=== PATIENT | female | born 1985 | race Caucasian/White ===

== ENCOUNTER 2016-09-06 12:01 | Outpatient (CLI) | payer MEDICAID | END 2016-09-06 12:02 | disposition home or self-care (01) | DX: J20.9 Acute bronchitis, unspecified (principal); R91.8 Other nonspecific abnormal finding of lung field ==

== ENCOUNTER 2016-09-19 12:01 | Emergency (ER) | payer MEDICAID ==
[2016-09-19] MEDS ORDERED: SODIUM CHLORIDE 0.9% 1,000 ML IV ONE ×2 (12:26→12:44)
[2016-09-19] MEDS ORDERED: KETOROLAC 60 MG/2 ML VIAL IVP STA (12:26)
[2016-09-19] MEDS ORDERED: ONDANSETRON 4 MG/2 ML VIAL IVP STA (12:26)
[2016-09-19] MEDS ORDERED: ONDANSETRON 4 MG/2 ML VIAL ONE (12:44)
[2016-09-19] MEDS ORDERED: KETOROLAC 30 MG/ML VIAL ONE (12:44)
[2016-09-19] MEDS ORDERED: HYDROmorphone 1 MG/ML SYRINGE IVP STA (13:07)
[2016-09-19] MEDS ORDERED: HYDROmorphone 1 MG/ML SYRINGE ONE (13:21)
[2016-09-19] MEDS ORDERED: cefTRIAXone 1 GM in SODIUM CHLORIDE 0.9% MINIBAG 100 ML IV STA (13:31)
[2016-09-19] MEDS ORDERED: cefTRIAXone 1 GM VIAL ONE (13:32)
[2016-09-19] MEDS ORDERED: SODIUM CHLORIDE 0.9% MINIBAG 100 ML IV ONE (13:33)
== END 2016-09-19 14:15 | disposition home or self-care (01) ==
DX: J18.9 Pneumonia, unspecified organism (principal); R10.9 Unspecified abdominal pain; K38.1 Appendicular concretions; R03.0 Elevated blood-pressure reading, without diagnosis of hypertension; F17.200 Nicotine dependence, unspecified, uncomplicated
CPT/HCPCS: 36415; 74176; 80053; 81003; 81025; 83690; 85025; 96361; 96365; 96375; 99284; J1170

== ENCOUNTER 2016-10-28 15:36 | Outpatient (CLI) | payer MEDICAID | END 2016-10-28 15:37 | disposition home or self-care (01) | DX: J18.9 Pneumonia, unspecified organism (principal) ==

== ENCOUNTER 2017-02-07 08:00 | Outpatient (CLI) | payer MEDICAID | END 2017-02-07 23:59 | disposition home or self-care (01) | LOC: LAB.R 08:00 | PROVIDERS: ATTEND Obstetrics & Gynecology | DX: N92.1 Excessive and frequent menstruation with irregular cycle (principal) | CPT/HCPCS: 87491; 87591 ==

== ENCOUNTER 2017-02-14 18:48 | Outpatient (CLI) | payer MEDICAID ==
--- NOTE | 2017-02-15 19:09 | Ultrasound Report ---
PELVIC ULTRASOUND: 02/14/2017 Transabdominal, transvaginal exam was done. Real-time scanning performed and static images obtained. REASON FOR EXAM: Excessive and frequent menstruation. FINDINGS: Uterus measures 8.2 cm x 4.8 cm x 5.2 cm with a volume of 107.2 mL. Endometrial echo comp sonya is 8 mm. Transvaginal ultrasound demonstrates two small subendometrial cysts, each measuring a f ew millimeters in diameter. This can be a subtle sign of adenomyosis. The endometrial echo complex shows no significant abnormality for a menstruating female. An obvious distinct fibroid is not seen within the uterus. Right ovary measures 3.6 cm x 3.1 cm x 3.0 cm for a volume of 17.2 mL. There is mild nonspecific inc reased vascularity within the parenchyma of the right ovary. There are two small follicular cysts al whit[place] the periphery of the right ovary. Left ovary measures 4.0 cm x 3.7 cm x 3.0 cm. Multiple small follicular cysts are noted within the l eft ovary. IMPRESSION: UTERUS SHOWS TWO TINY CYSTIC STRUCTURES IN THE SUBENDOMETRIAL REGION OF THE BODY OF THE UTERUS. THIS CAN BE A SUBTLE SIGN OF ADENOMYOSIS. UTERUS OTHERWISE SHOWS NO SIGNIFICANT ABNORMALITY. OVARIES SHOW NO SIGNIFICANT ABNORMALITY. JOB #: [id number] EXT JOB #:[id number]
== END 2017-02-14 18:49 | disposition home or self-care (01) ==
LOC: DI 18:48
PROVIDERS: ATTEND Obstetrics & Gynecology
DX: N85.9 Noninflammatory disorder of uterus, unspecified (principal); N92.1 Excessive and frequent menstruation with irregular cycle
CPT/HCPCS: 76830; 76856

== ENCOUNTER 2017-05-06 15:35 | Outpatient (CLI) | payer MEDICAID ==
[2017-05-06 18:47] LABS: BASOPHILS % (AUTO) 0.5 %; EOSINOPHILS # (AUTO) 0.4 10^3/uL (0.0-0.7); EOSINOPHILS % (AUTO) 4.3 %; HCT - HEMATOCRIT 41.6 % (37.0-47.0); HGB - HEMOGLOBIN 14.2 g/dL (12.0-16.0); LYMPHOCYTES % (AUTO) 34.1 %; MEAN CORPUSCULAR HEMOGLOBIN 33.6 pg (27.0-31.0); MEAN CORPUSCULAR VOLUME 98.8 fL (81.0-99.0); MEAN PLATELET VOLUME 9.6 fL (7.9-10.8); MONOCYTES # (AUTO) 0.9 10^3/uL (0.0-1.0); MONOCYTES % (AUTO) 10.3 %; NEUTROPHILS # (AUTO) 4.4 10^3/uL (1.5-6.6); NEUTROPHILS % (AUTO) 50.8 %; NUCLEATED RED BLOOD CELLS AUTO 0.1 /100WBC; RED BLOOD COUNT 4.21 10^6/uL (4.20-5.40); RED CELL DISTRIBUTION WIDTH 13.1 % (12.0-15.0); UNCORRECTED WHITE BLOOD COUNT 8.7 x10^3/uL; WHITE BLOOD COUNT 8.7 x10^3/uL (4.8-10.8)
[2017-05-06 19:15] LABS: TOTAL T3 1.09 ng/mL (0.87-1.78)
[2017-05-06 19:27] LABS: THYROID STIMULATING HORMONE 0.47 uIU/mL (0.34-5.60)
== END 2017-05-06 15:36 | disposition home or self-care (01) ==
LOC: LAB.F 15:35
PROVIDERS: ATTEND Obstetrics & Gynecology
DX: N92.1 Excessive and frequent menstruation with irregular cycle (principal); E03.9 Hypothyroidism, unspecified
CPT/HCPCS: 36415; 84436; 84443; 84480; 84481; 85025

== ENCOUNTER 2017-09-22 09:10 | Outpatient (CLI) | payer MEDICAID ==
--- NOTE | 2017-09-22 19:13 | XRAY Report ---
DATE OF SERVICE: 09/22/2017 THREE VIEW RIGHT HAND: 09/22/2017 CLINICAL INDICATION: Thumb pain. AP, lateral, oblique views of the right hand demonstrate no evidence of fracture or dislocation. The joint spaces are preserved. No radiopaque foreign body is appreciated in the soft tissues. IMPRESSION: Normal right hand. TD: 09/22/2017 20:12
== END 2017-09-22 09:11 | disposition home or self-care (01) ==
LOC: DI.S 09:10
PROVIDERS: ATTEND Nurse Practitioner Family
DX: M79.644 Pain in right finger(s) (principal)

== ENCOUNTER 2018-03-28 14:52 | Outpatient (CLI) | payer MEDICAID ==
--- NOTE | 2018-03-28 15:54 | XRAY Report ---
Procedure Date: 03/28/2018 Accession Number: [id number] / [id number] Procedure: XRS - Knee 4 View RT CPT Code: FULL RESULT: EXAM: Knee 4 View RT DATE: 03/28/2018 3:49 PM CLINICAL HISTORY: PAIN IN RIGHT KNEE COMPARISON: None. TECHNIQUE: 4 views. FINDINGS: Bones: Normal. No fractures or bone lesions. Joints: Normal. No effusion. No subluxations. Soft Tissues: Normal. No soft tissue swelling. IMPRESSION: Normal knee radiography. RADIA
== END 2018-03-28 14:53 | disposition home or self-care (01) ==
LOC: DI.S 14:52
PROVIDERS: ATTEND Nurse Practitioner Family
DX: M25.561 Pain in right knee (principal)

== ENCOUNTER 2018-07-01 12:44 | Emergency (ER) | payer MEDICAID ==
[2018-07-01 13:25] LABS: BASOPHILS % (AUTO) 0.5 %; EOSINOPHILS # (AUTO) 0.2 10^3/uL (0.0-0.7); EOSINOPHILS % (AUTO) 2.5 %; HGB - HEMOGLOBIN 14.1 g/dL (12.0-16.0); LYMPHOCYTES # (AUTO) 3.1 10^3/uL (1.5-3.5); LYMPHOCYTES % (AUTO) 32.5 %; MEAN CORPUSCULAR HEMOGLOBIN 34.1 pg (27.0-31.0); MEAN CORPUSCULAR HGB CONC 34.6 g/dL (32.0-36.0); MEAN CORPUSCULAR VOLUME 98.6 fL (81.0-99.0); MEAN PLATELET VOLUME 9.3 fL (7.9-10.8); MONOCYTES # (AUTO) 0.8 10^3/uL (0.0-1.0); MONOCYTES % (AUTO) 8.5 %; NEUTROPHILS # (AUTO) 5.3 10^3/uL (1.5-6.6); PLT - PLATELET COUNT 253 10^3/uL (130-450); RED BLOOD COUNT 4.13 10^6/uL (4.20-5.40); RED CELL DISTRIBUTION WIDTH 12.9 % (12.0-15.0); WHITE BLOOD COUNT 9.4 x10^3/uL (4.8-10.8)
[2018-07-01 13:31] LABS: BILIRUBIN,URINE NEGATIVE (NEGATIVE); GLUCOSE, URINE (UA) NEGATIVE (NEGATIVE); KETONES,URINE (UA) NEGATIVE (NEGATIVE); LEUKOCYTE ESTERASE, URINE NEGATIVE (NEGATIVE); NITRITE,URINE NEGATIVE (NEGATIVE); OCCULT BLOOD,URINE NEGATIVE (NEGATIVE); PH,URINE 7.5 PH (5.0-7.5); PROTEIN,URINE NEGATIVE (NEGATIVE); UROBILINOGEN,URINE 0.2 (NORMAL) E.U./dL (NORMAL)
[2018-07-01 13:31] LABS: ALBUMIN 4.8 g/dL (3.2-5.5); ALBUMIN/GLOBULIN RATIO 1.6 (1.0-2.2); BILIRUBIN,TOTAL 1.1 mg/dL (0.2-1.0); CALCIUM 9.3 mg/dL (8.5-10.3); CREATININE 0.7 mg/dL (0.4-1.0); TOTAL PROTEIN 7.8 g/dL (6.7-8.2)
[2018-07-01 13:34] LABS: CLARITY,URINE CLEAR (CLEAR); HCG UR QUAL NEGATIVE
[2018-07-01] MEDS ORDERED: KETOROLAC 60 MG/2 ML VIAL IVP STA (13:47)
[2018-07-01] MEDS ORDERED: PROMETHAZINE INJ 25 MG in SODIUM CHLORIDE 0.9% 50 ML IV STA (13:48)
[2018-07-01] MEDS ORDERED: SODIUM CHLORIDE 0.9% 1,000 ML IV ONE (13:48)
--- NOTE | 2018-07-01 13:59 | ED Physician Documentation ---
PD HPI ABD PAIN - Stated complaint Stated Complaint: ABD PX - Chief complaint Chief Complaint: Abd Pain - History obtained from History obtained from: Patient - History of Present Illness Timing - onset: Other (The patient's symptoms started 2 days ago) Timing - duration: Days (2) Timing - details: Gradual onset, Still present, Constant Severity Comments: Moderate Quality: Cramping, Sharp Location: RLQ Radiation: No: Chest, Lower back, Left flank, Left shoulder, Right flank, Right shoulder Improved by: No: Eating, Laying still, Vomiting, BM, Position Worsened by: No: Eating, Moving, Breathing, Position, Palpation Associated symptoms: Nausea, Dizzy, Loss of appetite. No: Fever, Vomiting, Hematemesis, Diarrhea, Melena, Dysuria, Vaginal bleeding Similar symptoms before: Has not had sx before Recently seen: Not recently seen Review of Systems Constitutional: denies: Fever, Chills Eyes: denies: Discharge Ears: denies: Drainage/discharge Nose: denies: Congestion Throat: denies: Sore throat Cardiac: denies: Palpitations Respiratory: denies: Cough GI: reports: Abdominal Pain, Nausea : denies: Dysuria Skin: denies: Rash Musculoskeletal: denies: Neck pain Neurologic: denies: Generalized weakness Immunocompromised: denies: Chemotherapy PD PAST MEDICAL HISTORY - Past Medical History Past Medical History: No - Past Surgical History Past Surgical History: No - Present Medications Home Medications: Ambulatory Orders Medication Instructions Recorded Confirmed HYDROcod/ACETAM 5/325 [[place] 5/325] 1 each PO Q6H PRN #15 tablet 07/01/18 Naproxen [Naprosyn] 500 mg PO BID PRN 30 Days #30 07/01/18 tablet Ondansetron Odt [Zofran] 4 mg TL Q6H PRN #30 tablet 07/01/18 - Allergies Allergies/Adverse Reactions: Allergies Allergy/AdvReac Type Severity Reaction Status Date / Time hydrocodone bitartrate * Allergy Itching Verified 07/01/18 12:51 [From Vicodin] - Social History Does the pt smoke?: Yes Smoking Status: Current every day smoker Does the pt drink ETOH?: No Does the pt have substance abuse?: Yes - Immunizations Immunizations are current?: Yes PD ED PE NORMAL - General General: Alert and oriented X 3, No acute distress - HEENT HEENT: Atraumatic, PERRL, EOMI, Ears normal - Neck Neck: Supple, no meningeal sign - Cardiac Cardiac: RRR, Strong equal pulses - Respiratory Respiratory: No respiratory distress, Clear bilaterally - Abdomen Abdomen: Soft, Non distended. No: Non tender (The patient has tenderness to palpation in the right lower abdomen, there is no rebound or peritoneal signs) - Derm Derm: Normal color - Extremities Extremities: No deformity, Normal ROM s pain - Neuro Neuro: Alert and oriented X 3, Normal speech - Psych Psych: Normal mood Results - Vitals Vitals: Vital Signs - 24 hr 07/01/18 07/01/18 12:48 14:44 Temperature 37.3 C Heart Rate 97 68 Respiratory 18 14 Rate Blood Pressure 132/76 H 113/70 O2 Saturation 100 100 Oxygen O2 Source Room air - Labs Labs: Laboratory Tests 07/01/18 07/01/18 07/01/18 12:56 13:10 13:10 WBC 9.4 RBC 4.13 L Hgb 14.1 Hct 40.7 MCV 98.6 MCH 34.1 H MCHC 34.6 RDW 12.9 Plt Count 253 MPV 9.3 Neut # (Auto) 5.3 Lymph # (Auto) 3.1 [place] # (Auto) 0.8 Eos # (Auto) 0.2 Baso # (Auto) 0.0 Absolute Nucleated RBC 0.00 Nucleated RBC % 0.0 Sodium 138 Potassium 3.5 Chloride 101 Carbon Dioxide 29 Anion Gap 8.0 BUN 12 Creatinine 0.7 Estimated GFR (MDRD) 96 Glucose 93 Calcium 9.3 Total Bilirubin 1.1 H AST 19 ALT 16 Alkaline Phosphatase 55 Total Protein 7.8 Albumin 4.8 Globulin 3.0 Albumin/Globulin Ratio 1.6 Lipase 25 Urine Color YELLOW Urine Clarity CLEAR Urine pH 7.5 Ur Specific [place] 1.015 Urine Protein NEGATIVE Urine Glucose (UA) NEGATIVE Urine Ketones NEGATIVE Urine Occult Blood NEGATIVE Urine Nitrite NEGATIVE Urine Bilirubin NEGATIVE Urine Urobilinogen 0.2 (NORMAL) Ur Leukocyte Esterase NEGATIVE Ur Microscopic Review NOT INDICATED Urine Culture Comments NOT INDICATED Urine HCG, Qual NEGATIVE - Rads (name of study) CT Abd/pelvis Radiology: Final report received (1. Normal appendix. 2. Uterine and bilateral pelvic varices and prominence of both ovarian veins. This can be seen in the setting of pelvic vascular congestion syndrome. 3. Trace pelvic cul-de-sac free fluid. 4. 1.6 cm right probable ovarian follicle/cyst. 5. 4 mm left lower lobe pulmonary nodule, possibly representing a residual finding, as discussed above. If the patient is high risk, follow-up CT could be performed in 12 months. ) PD MEDICAL DECISION MAKING - ED course ED course: On reevaluation the patient is resting comfortably and her symptoms appear to be under much improvement. The patient's pain is now under control. The case was discussed with the on-call [employer] Dr. Marilia Ya, the patient's clinical presentation and CT findings were discussed. Since the patient's pain is under control she can follow-up with her primary [facility] as an outpatient for ongoing management. The findings were discussed with the patient and she understands and agrees to the plan. The patient did have a incidental finding of a pulmonary nodule but is not high risk.The patient appears appropriate for discharge and outpatient management. I discussed warning and advised returning to the emergency department for worsening symptoms or any concerns. Departure - Departure Disposition: 01 Home, Self Care Clinical Impression: Acute abdominal pain, Pelvic congestion syndrome Ovarian cyst Qualifiers: Laterality: right Qualified Code(s): N83.201 - Unspecified ovarian cyst, right side Condition: Good Instructions: Abdominal Pain, ED Cyst Ovarian Follow-Up: Alexia Garza ARNP [Primary Care Provider] - Pedro Vázquez MD [Provider Admit Priv/Credential] - (Please call first thing on tuesday to schedule a follow-up appointment for further evaluation of the findings seen on your workup today.) Prescriptions: HYDROcod/ACETAM 5/325 [[place] 5/325] 1 each PO Q6H PRN #15 tablet PRN Reason: Pain Naproxen [Naprosyn] 500 mg PO BID PRN 30 Days #30 tablet PRN Reason: Pain Ondansetron Odt [Zofran] 4 mg TL Q6H PRN #30 tablet PRN Reason: Nausea / Vomiting Comments: Please return to the Emergency Department for worsening symptoms or any concerns
[2018-07-01] MEDS ORDERED: IOPAMIDOL-300 100 ML VIAL ONE (14:13)
[2018-07-01] MEDS ORDERED: IOPAMIDOL-300 100 ML VIAL IVP ONE (14:29)
--- NOTE | 2018-07-01 15:12 | CT Report ---
Reason: RLQ Procedure Date: 07/01/2018 Accession Number: [id number] / [id number] Procedure: CT - Abdomen/Pelvis W/ CPT Code: FULL RESULT: EXAM: CT ABDOMEN AND PELVIS EXAM DATE: 07/01/2018 02:21 PM. CLINICAL HISTORY: RLQ. COMPARISONS: CT abdomen and pelvis without contrast 09/19/2016. TECHNIQUE: Routine helical CT imaging was performed through the abdomen and pelvis. IV contrast: ISOVUE 300 100mL. Enteric contrast: No. Reconstructions: Coronal and sagittal. In accordance with CT protocol optimization, one or more of the following dose reduction techniques were utilized for this exam: automated exposure control, adjustment of mA and/or KV based on patient size, or use of iterative reconstructive technique. FINDINGS: Lung Bases: Very mild probable atelectasis within the anterior left lower lobe. No focal consolidation. 4 mm solid nodule within the peripheral, posterior left lower lobe (3/7). This is near an area of previous substantial focal consolidation which could've obscured this nodule or this nodule could represent minimal residual. However, a new pulmonary nodule cannot be excluded. Liver: Normal. No masses. Gallbladder/Bile Ducts: Unremarkable. Spleen: Normal. Pancreas: Normal. Adrenal Glands: Normal. Kidneys: Normal. No masses or hydronephrosis. Peritoneal Cavity/Bowel: No she adenopathy or free air. Trace free fluid within the pelvic cul-de-sac. No masses or acute inflammatory process although limited intra-abdominal/pelvic fat planes limits evaluation. The appendix is well visualized and normal. Pelvic Organs: 1.6 cm right adnexal region cystic focus likely representing an ovarian follicle/cyst. Uterine and numerous bilateral pelvic varices with prominence of the bilateral ovarian veins. This can be seen in the setting of pelvic vascular congestive syndrome. This may represent a change from the prior exam but comparison with the prior noncontrast exam is limited. The bladder appears normal. Vasculature: Pelvic varices, as discussed above. Bones: No significant abnormality. Other: None. IMPRESSION: 1. Normal appendix. 2. Uterine and bilateral pelvic varices and prominence of both ovarian veins. This can be seen in the setting of pelvic vascular congestion syndrome. 3. Trace pelvic cul-de-sac free fluid. 4. 1.6 cm right probable ovarian follicle/cyst. 5. 4 mm left lower lobe pulmonary nodule, possibly representing a residual finding, as discussed above. If the patient is high risk, follow-up CT could be performed in 12 months. RADIA
[2018-07-01 15:46] VITALS: BP 114/51
== END 2018-07-01 15:45 | disposition home or self-care (01) ==
LOC: ED 12:44
DX: R10.31 Right lower quadrant pain (principal); N94.89 Other specified conditions associated with female genital organs and menstrual cycle; N83.201 Unspecified ovarian cyst, right side; F17.200 Nicotine dependence, unspecified, uncomplicated
CPT/HCPCS: 36415; 74177; 80053; 81003; 81025; 83690; 85025; 96374; 96375; 99283; 99284; J7040; Q9967; 81001; 87086

== ENCOUNTER 2018-07-19 16:04 | Outpatient (CLI) | payer MEDICAID | END 2018-07-19 16:05 | disposition home or self-care (01) | LOC: LAB.R 16:04 | PROVIDERS: ATTEND Obstetrics & Gynecology | DX: Z11.3 Encounter for screening for infections with a predominantly sexual mode of transmission (principal) | CPT/HCPCS: 87491; 87591 ==

== ENCOUNTER 2018-09-04 17:42 | Outpatient (CLI) | payer MEDICAID ==
--- NOTE | 2018-09-05 11:05 | Ultrasound Report ---
Reason: PELVIC CONGESTION SYNDROME Procedure Date: 09/04/2018 Accession Number: [id number] / [id number] Procedure: US - Pelvic w/Transvaginal CPT Code: FULL RESULT: EXAM: PELVIC ULTRASOUND EXAM DATE: 09/04/2018 06:34 PM. CLINICAL HISTORY: Pelvic congestion syndrome. COMPARISON: CT abdomen/Pelvis with contrast 07/01/2018 2:29 PM. TECHNIQUE: Realtime transabdominal pelvic scan performed to identify the uterus and adnexa and as an overview of other pelvic structures, followed by transvaginal scan to provide greater detail of the uterus and adnexa, with static image documentation. FINDINGS: Uterus: 10.1 x 4.3 x 5.1 cm, volume 25 cc. Retroverted position. Uterine echo texture is heterogeneous and coarse and a prominent venous uterine plexus was identified. Masses: No discrete masses identified. Endometrium: 4.6 mm. Normal. Cervix: Unremarkable. Right Ovary: 3.6 x 2.1 x 1.2 cm, volume 4.7 cc. Normal echotexture and blood flow. Left Ovary: 3.0 x 1.9 x 1.7 cm, volume 5 cc. Normal echotexture and blood flow. Free Fluid: Small amount of free fluid is noted. Other: None. IMPRESSION: Prominent uterine venous plexus. Small amount of free pelvic fluid. Imaging findings are compatible with pelvic congestion. RADIA
== END 2018-09-04 17:43 | disposition home or self-care (01) ==
LOC: DI 17:42
PROVIDERS: ATTEND Obstetrics & Gynecology
DX: N94.89 Other specified conditions associated with female genital organs and menstrual cycle (principal)
CPT/HCPCS: 76830; 76856

== ENCOUNTER 2018-09-12 08:00 | Outpatient (CLI) | payer MEDICAID | END 2018-09-12 23:59 | disposition home or self-care (01) | LOC: LAB.R 08:00 | PROVIDERS: ATTEND Obstetrics & Gynecology | DX: N94.6 Dysmenorrhea, unspecified (principal) | CPT/HCPCS: 87491; 87591 ==

== ENCOUNTER 2019-02-12 10:41 | Emergency (ER) | payer MEDICAID ==
[2019-02-12 10:58] VITALS: BP 114/71
== END 2019-02-12 11:59 | disposition left against medical advice (07) ==
LOC: ED 10:41
DX: Z53.21 Procedure and treatment not carried out due to patient leaving prior to being seen by health care provider (principal)

== ENCOUNTER 2019-08-27 11:29 | Outpatient (CLI) | payer MEDICAID ==
[2019-08-27 18:08] LABS: ALBUMIN 4.7 g/dL (3.2-5.5); ALBUMIN/GLOBULIN RATIO 1.6 (1.0-2.2); CALCIUM 9.1 mg/dL (8.5-10.3); CREATININE 0.6 mg/dL (0.4-1.0); TOTAL PROTEIN 7.6 g/dL (6.7-8.2)
[2019-08-27 18:12] LABS: BASOPHILS % (AUTO) 0.5 %; EOSINOPHILS # (AUTO) 0.2 10^3/uL (0.0-0.7); EOSINOPHILS % (AUTO) 2.1 %; HGB - HEMOGLOBIN 14.2 g/dL (12.0-16.0); LYMPHOCYTES # (AUTO) 2.3 10^3/uL (1.5-3.5); LYMPHOCYTES % (AUTO) 27.4 %; MEAN CORPUSCULAR HEMOGLOBIN 33.2 pg (27.0-31.0); MEAN CORPUSCULAR HGB CONC 32.7 g/dL (32.0-36.0); MEAN CORPUSCULAR VOLUME 101.4 fL (81.0-99.0); MONOCYTES % (AUTO) 12.4 %; NEUTROPHILS # (AUTO) 4.7 10^3/uL (1.5-6.6); NEUTROPHILS % (AUTO) 57.2 %; PLT - PLATELET COUNT 280 10^3/uL (130-450); RED BLOOD COUNT 4.28 10^6/uL (4.20-5.40); RED CELL DISTRIBUTION WIDTH 12.7 % (12.0-15.0); WHITE BLOOD COUNT 8.2 x10^3/uL (4.8-10.8)
[2019-08-27 18:59] LABS: FREE T4 (FREE THYROXINE) 0.94 ng/dL (0.58-1.64)
== END 2019-08-27 11:30 | disposition home or self-care (01) ==
LOC: LAB.S 11:29
PROVIDERS: ATTEND Registered Nurse
DX: R00.2 Palpitations (principal)
CPT/HCPCS: 36415; 80053; 84439; 84443; 85025

== ENCOUNTER 2020-01-29 08:00 | Outpatient (CLI) | payer MEDICAID ==
[2020-01-29 18:35] LABS: T4 (THYROXINE) 6.82 ug/dL (6.09-12.23)
[2020-01-29 18:39] LABS: THYROID STIMULATING HORMONE 0.49 uIU/mL (0.34-5.60)
[2020-01-29 18:41] LABS: FREE T4 (FREE THYROXINE) 0.92 ng/dL (0.58-1.64)
[2020-01-30 12:05] LABS: HEPATITIS B SURFACE ANTIGEN NON-REACTIVE (NON-REACTIVE); HEPATITIS C ANTIBODY NON-REACTIVE (NON-REACTIVE)
[2020-01-30 12:44] LABS: HIV AG/AB 4TH GEN NON-REACTIVE (NON-REACTIVE)
== END 2020-01-29 23:59 | disposition home or self-care (01) ==
LOC: LAB.WCP 08:00
PROVIDERS: ATTEND Obstetrics & Gynecology
DX: R00.2 Palpitations (principal); Z11.3 Encounter for screening for infections with a predominantly sexual mode of transmission
CPT/HCPCS: 36415; 81599; 84436; 84439; 84443; 86803; 87340; 87389

== ENCOUNTER 2020-07-21 15:45 | Outpatient (CLI) | payer MEDICAID ==
[2020-07-21 19:54] LABS: BASOPHILS # (AUTO) 0.1 10^3/uL (0.0-0.1); BASOPHILS % (AUTO) 0.8 %; EOSINOPHILS # (AUTO) 0.2 10^3/uL (0.0-0.7); EOSINOPHILS % (AUTO) 2.2 %; HGB - HEMOGLOBIN 13.9 g/dL (12.0-16.0); LYMPHOCYTES # (AUTO) 3.2 10^3/uL (1.5-3.5); MEAN CORPUSCULAR HEMOGLOBIN 33.7 pg (27.0-31.0); MEAN CORPUSCULAR HGB CONC 33.6 g/dL (32.0-36.0); MEAN CORPUSCULAR VOLUME 100.2 fL (81.0-99.0); MEAN PLATELET VOLUME 11.7 fL (7.9-10.8); MONOCYTES # (AUTO) 1.2 10^3/uL (0.0-1.0); MONOCYTES % (AUTO) 11.9 %; NEUTROPHILS # (AUTO) 5.6 10^3/uL (1.5-6.6); NEUTROPHILS % (AUTO) 53.8 %; PLT - PLATELET COUNT 265 10^3/uL (130-450); RED BLOOD COUNT 4.13 10^6/uL (4.20-5.40); RED CELL DISTRIBUTION WIDTH 12.9 % (12.0-15.0); WHITE BLOOD COUNT 10.4 x10^3/uL (4.8-10.8)
[2020-07-21 20:14] LABS: ALBUMIN 4.6 g/dL (3.2-5.5); ALBUMIN/GLOBULIN RATIO 1.5 (1.0-2.2); BILIRUBIN,TOTAL 0.6 mg/dL (0.2-1.0); CALCIUM 9.2 mg/dL (8.5-10.3); CREATININE 0.5 mg/dL (0.4-1.0); TOTAL PROTEIN 7.7 g/dL (6.7-8.2)
== END 2020-07-21 15:46 | disposition home or self-care (01) ==
LOC: LAB.S 15:45
PROVIDERS: ATTEND Registered Nurse
DX: F41.8 Other specified anxiety disorders (principal); R00.2 Palpitations; E05.90 Thyrotoxicosis, unspecified without thyrotoxic crisis or storm
CPT/HCPCS: 36415; 80053; 84443; 85025

== ENCOUNTER 2021-04-13 19:34 | Outpatient (CLI) | payer MEDICAID | END 2021-04-13 19:35 | disposition home or self-care (01) | LOC: COV 19:34 | PROVIDERS: ATTEND Family Medicine | DX: R06.02 Shortness of breath (principal); M79.10 Myalgia, unspecified site; R53.83 Other fatigue; R68.83 Chills (without fever); R07.0 Pain in throat; R43.9 Unspecified disturbances of smell and taste; R09.81 Nasal congestion; J34.89 Other specified disorders of nose and nasal sinuses; R11.0 Nausea; Z20.822 Contact with and (suspected) exposure to COVID-19 ==

== ENCOUNTER 2021-06-18 11:15 | Outpatient (CLI) | payer MEDICAID ==
[2021-06-18 18:54] LABS: THYROID STIMULATING HORMONE 0.19 uIU/mL (0.34-5.60)
[2021-06-18 18:56] LABS: FREE T4 (FREE THYROXINE) 0.94 ng/dL (0.58-1.64)
== END 2021-06-18 11:16 | disposition home or self-care (01) ==
LOC: LAB.WCP 11:15
PROVIDERS: ATTEND Internal Medicine Endocrinology, Diabetes & Metabolism
DX: E05.90 Thyrotoxicosis, unspecified without thyrotoxic crisis or storm (principal)
CPT/HCPCS: 36415; 81599; 84436; 84439; 84443; 84445; 84480

== ENCOUNTER 2023-09-26 09:42 | Emergency (ER) | payer MEDICAID ==
[2023-09-26 10:04] VITALS: O2SAT 100
[2023-09-26 10:23] LABS: BASOPHILS # (AUTO) 0.1 10^3/uL (0.0-0.1); BASOPHILS % (AUTO) 0.8 %; EOSINOPHILS # (AUTO) 0.2 10^3/uL (0.0-0.7); EOSINOPHILS % (AUTO) 2.7 %; HCT - HEMATOCRIT 44.6 % (37.0-47.0); HGB - HEMOGLOBIN 14.5 g/dL (12.0-16.0); LYMPHOCYTES # (AUTO) 2.1 10^3/uL (1.5-3.5); LYMPHOCYTES % (AUTO) 29.1 %; MEAN CORPUSCULAR HEMOGLOBIN 32.4 pg (27.0-31.0); MEAN CORPUSCULAR HGB CONC 32.5 g/dL (32.0-36.0); MEAN CORPUSCULAR VOLUME 99.8 fL (81.0-99.0); MEAN PLATELET VOLUME 11.1 fL (7.9-10.8); MONOCYTES # (AUTO) 0.7 10^3/uL (0.0-1.0); MONOCYTES % (AUTO) 9.6 %; NEUTROPHILS # (AUTO) 4.2 10^3/uL (1.5-6.6); NEUTROPHILS % (AUTO) 57.5 %; PLT - PLATELET COUNT 274 10^3/uL (130-450); RED BLOOD COUNT 4.47 10^6/uL (4.20-5.40); RED CELL DISTRIBUTION WIDTH 12.7 % (12.0-15.0); WHITE BLOOD COUNT 7.3 x10^3/uL (4.8-10.8)
[2023-09-26] MEDS ORDERED: SODIUM CHLORIDE 0.9% 1,000 ML IV STA (10:32)
[2023-09-26 10:45] LABS: ALBUMIN 4.6 g/dL (3.2-5.5); ALBUMIN/GLOBULIN RATIO 1.6 (1.0-2.2); BILIRUBIN,TOTAL 0.6 mg/dL (0.2-1.0); CALCIUM 9.8 mg/dL (8.5-10.3); CREATININE 0.6 mg/dL (0.6-1.3); POTASSIUM 3.9 mmol/L (3.5-4.5); TOTAL PROTEIN 7.5 g/dL (6.4-8.9)
[2023-09-26 10:58] LABS: TROPONIN I HIGH SENSITIVITY 2.3 ng/L (2.3-14.8)
--- NOTE | 2023-09-26 11:45 | ED Physician Documentation ---
PD HPI CHEST PAIN - Stated complaint Stated Complaint: CP/NAUSEA - Chief complaint Chief Complaint: Cardiac - History obtained from History obtained from: Patient - Additional information Additional information: Patient is a 38-year-old female presenting for evaluation of left-sided chest pain that has been intermittent for the last 3 or 4 days. She states that it feels like something is bruised and actually looked in the mirror a few days ago to see if she had a bruise to the area. She reports feeling discomfort again this morning and also feeling some in her back but also feels like an area of soreness or bruise. She says she noticed this as she was getting her kids ready for school and noted that it hurts a little more as she was turning or reaching for the steering wheel. Denies any injury or trauma. She recovered from COVID a few weeks ago. Otherwise no recent fevers cough or congestion. No shortness of air. Denies history of PE or DVT. No recent travel or immobilization. Does not take any medications for hypertension, hyperlipidemia or diabetes. Denies family history of early CAD. No leg swelling or pain. She reports this morning feeling a little lightheaded and nauseous which has improved. She does report a history of anxiety and is currently not taking lorazepam. She states that she was not needing to use her lorazepam very much when she was prescribed it.Denies SI or HI.Uses marijuana occasionally. Denies other drug use. Review of Systems Constitutional: denies: Fever Cardiac: reports: Chest pain / pressure Respiratory: denies: Dyspnea GI: denies: Abdominal Pain Neurologic: denies: Headache PD PAST MEDICAL HISTORY - Past Medical History Past Medical History: Yes Psych: Depression, Anxiety - Past Surgical History Past Surgical History: No - Present Medications Home Medications: Ambulatory Orders Medication Instructions Recorded Confirmed No Known Home Medications 02/12/19 09/26/23 - Allergies Allergies/Adverse Reactions: Allergies Allergy/AdvReac Type Severity Reaction Status Date / Time hydrocodone bitartrate * Allergy Itching Verified 02/12/19 10:58 [From Vicodin] - Social History Does the pt smoke?: Yes Smoking Status: Current every day smoker Does the pt drink ETOH?: Yes Does the pt have substance abuse?: Yes - Immunizations Immunizations are current?: Yes PD ED PE NORMAL - General General: Alert and oriented X 3, No acute distress, Well developed/nourished - HEENT HEENT: Atraumatic, Moist mucous membranes, Pharynx benign - Neck Neck: Supple, no meningeal sign - Cardiac Cardiac: RRR, Strong equal pulses, Other (No chest wall tenderness, no rash) - Respiratory Respiratory: No respiratory distress, Clear bilaterally - Abdomen Abdomen: Normal bowel sounds, Soft, Non tender, Non distended - Derm Derm: Warm and dry - Neuro Neuro: Normal speech Results - Vitals Vitals: Vital Signs - 24 hr 09/26/23 09/26/23 09:57 12:04 Temperature 36.8 C 36.7 C Heart Rate 91 68 Respiratory 16 16 Rate Blood Pressure 125/77 118/72 O2 Saturation 100 100 Oxygen O2 Source Room air - EKG (time done) 0958 EKG releavant findings:: EKG personally interpreted by author of this note. Relevant findings are: Rate 69, normal sinus rhythm, no STEMI, QTc 408 - Labs Labs: Laboratory Tests 09/26/23 09/26/23 10:14 10:14 WBC 7.3 RBC 4.47 Hgb 14.5 Hct 44.6 MCV 99.8 H MCH 32.4 H MCHC 32.5 RDW 12.7 Plt Count 274 MPV 11.1 H Neut # (Auto) 4.2 Lymph # (Auto) 2.1 [place] # (Auto) 0.7 Eos # (Auto) 0.2 Baso # (Auto) 0.1 Absolute Nucleated RBC 0.00 Nucleated RBC % 0.0 Sodium 136 Potassium 3.9 Chloride 105 Carbon Dioxide 24 Anion Gap 7.0 BUN 12 Creatinine 0.6 Estimated GFR (MDRD) 111 Glucose 90 Calcium 9.8 Total Bilirubin 0.6 AST 15 ALT 13 Alkaline Phosphatase 54 Troponin I High Sens 2.3 Total Protein 7.5 Albumin 4.6 Globulin 2.9 Albumin/Globulin Ratio 1.6 Lipase 11 PD Medical Decision Making - ED course Complexity details: reviewed results, re-evaluated patient, d/w patient ED course: Patient is a 38-year-old female presenting for evaluation of chest pain. Patient has no known risk factors for ACS. EKG is reviewed and nonischemic. Labs including CBC, chemistries and troponin were obtained and reviewed and negative. Her symptoms been ongoing for several hours. She is low risk for ACS per the heart score. PERC negative. Doubt dissection as patient does not have any risk factors. Patient is feeling better here. Patient counseled on need for close follow-up as well as concerning symptoms to return for. Departure - Departure Disposition: 01 Home, Self Care Clinical Impression: Chest pain Condition: Stable Instructions: ED Chest Pain Atypical Unkn Cause Comments: Your testing today does not show signs of a heart attack. Your chest x-ray is also clear and I do not see signs of pneumonia. I would recommend close follow- up with your primary care provider. Return to the ER with any worsening symptoms. Forms: PCP List Discharge Date/Time: 09/26/23 12:04
--- NOTE | 2023-09-26 11:48 | XRAY Report ---
PROCEDURE: Chest 1V INDICATIONS: CP TECHNIQUE: One view of the chest was acquired. COMPARISON: None. FINDINGS: Surgical changes and devices: None. Lungs and pleura: No pleural effusions or pneumothorax. Lungs are clear. Mediastinum: Mediastinal contours appear normal. Heart size is normal. Bones and chest wall: No suspicious bony lesions. Overlying soft tissues appear unremarkable. IMPRESSION: No acute cardiopulmonary process. Reviewed by: Leobardo Duncan MD on 09/26/2023 11:46 AM [facility] Approved by: Leobardo Duncan MD on 09/26/2023 11:46 AM [facility] Station ID: [id number]
[2023-09-26 12:12] VITALS: BP 118/72
== END 2023-09-26 12:04 | disposition home or self-care (01) ==
LOC: ED 09:42
DX: R07.9 Chest pain, unspecified (principal); F17.200 Nicotine dependence, unspecified, uncomplicated
CPT/HCPCS: 36415; 80053; 83690; 84484; 85025; 93005; 99283; 99284